=== PATIENT | male | born 2000 | race Caucasian/White ===

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

== ENCOUNTER 2021-04-09 12:28 | Emergency (ER) | payer OTHER ==
[~2021-04-09] VITALS: Ht 172.7 cm; Wt 61.4 kg
[2021-04-09] MEDS ORDERED: IOHEXOL 300 MG/ML 75 ML VIAL. IV ONE (13:00)
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
[2021-04-09] MEDS ORDERED: ONDANSETRON ODT 4 MG TAB.RAPDIS PO ONE (13:15)
[2021-04-09] MEDS ORDERED: HYDROcodone/APAP 5/325MG 1 TAB TABLET PO ONE (13:15)
[2021-04-09] MEDS ORDERED: ONDANSETRON ODT 4 MG TAB.RAPDIS ONE (13:16)
[2021-04-09] MEDS ORDERED: HYDROcodone/APAP 5/325MG 1 TAB TABLET ONE (13:17)
[2021-04-09] MEDS ORDERED: CONTRAST GIVEN. MC PRN (13:30)
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
[2021-04-09 14:42] VITALS: BP 128/67
== END 2021-04-09 14:49 | disposition home or self-care (01) ==
LOC: ER 12:28
DX: S30.0XXA Contusion of lower back and pelvis, initial encounter (principal); X58.XXXA Exposure to other specified factors, initial encounter; Y93.39 Activity, other involving climbing, rappelling and jumping off; Y92.89 Other specified places as the place of occurrence of the external cause; Y99.8 Other external cause status
CPT/HCPCS: 74177; 99285; Q0162; Q9967